=== PATIENT | female | born 1990 | race Caucasian/White ===

== ENCOUNTER 2016-10-04 09:02 | Inpatient (IN) | payer OTHER ==
[~2016-10-04] VITALS: Ht 162.6 cm; Wt 59.0 kg
--- NOTE | 2016-10-04 09:02 | NUR ---
Patient was BIBA and taken to bed 06 via gurney per EMS.
[2016-10-04 09:04] VITALS: BP 188/105
--- NOTE | 2016-10-04 09:05 | NUR ---
26/F [facility]BD[facility] RADIATING TO BACK AND NAUSEA AND VOMITING X 1WK. HX OF DM,HTN,DEPRESION,ANEMIA,ASTHMA,ESRF WITH HD [id number]/WK ( TUEWED,THUR& SAT) SKIN IS PINK/WARM/DRY; PICC LINE RIGHT UPPER CHEST, GRAFT FOR HEMO DIALYSIS DALE,+ BRUISE & THRILL. AAOX4 PTFEELS WEAK UNSTEADY GAIT WITH ASSISTANCE; LUNGS CLEAR BL; HR EVEN AND REGULAR; PT DENIES ANY FEVER, CP, SOB, OR COUGH AT THIS TIME; PATIENT STATES PAIN OF 8/10 AT THIS TIME; PATIENT POSITIONED FOR COMFORT; HOB ELEVATED; BEDRAILS UP X2; BED DOWN. ER MD MADE AWARE OF PT STATUS.
[2016-10-04] MEDS ORDERED: NACL 0.9% 1,000 ML IV ONE (09:15)
[2016-10-04] MEDS ORDERED: KETOROLAC 30 MG/ML VIAL IVP ONE (09:15)
[2016-10-04] MEDS ORDERED: ONDANSETRON 4 MG/2 ML VIAL IVP ONE (09:15)
[2016-10-04] MEDS ORDERED: D50SYR IV (09:21)
[2016-10-04] MEDS ORDERED: CARV25TA GT (09:21)
[2016-10-04] MEDS ORDERED: APIX2.5 GT (09:21)
[2016-10-04] MEDS ORDERED: CLON0.3T23 GT (09:21)
[2016-10-04] MEDS ORDERED: AMLO10TA GT (09:21)
[2016-10-04] MEDS ORDERED: BEN50 GT (09:21)
[2016-10-04] MEDS ORDERED: GLUC1PDS1 IM (09:21)
[2016-10-04] MEDS ORDERED: FENT1PAT3 TD (09:21)
--- NOTE | 2016-10-04 09:23 | NUR ---
Dr. Wynn evaluating patient at bedside.
[2016-10-04] MEDS ORDERED: HYDROmorphone PFS 2 MG/ML SYR IVP ONE (09:30)
--- NOTE | 2016-10-04 09:36 | NUR ---
PT STATED ABDOMINAL PAIN 12/17 ; ER MD DR MOSQUEDA ORDER DILAUDID 2 MG IV.
--- NOTE | 2016-10-04 09:36 | NUR ---
Oscar degroot in ED - 10/04/16 at 1139 by MED1 PT STATED ABDOMINAL PAIN 12/17 ; TIFFANY ARRIOLA DILAUDID 1MG IV.
[2016-10-04 09:40] LABS: BASOPHILS # (AUTO) 0.3 K/uL (0.00-0.22); EOSINOPHILS # (AUTO) 0.2 K/uL (0-0.4); EOSINOPHILS % (AUTO) 2.1 % (0.0-4.0); HEMATOCRIT 41.4 % (36-48); HEMOGLOBIN 13.3 g/dL (12.0-16.0); LYMPHOCYTES # (AUTO) 1.1 K/uL (2.5-16.5); LYMPHOCYTES % (AUTO) 11.1 % (20.5-51.1); MEAN CORPUSCULAR HEMOGLOBIN 29 pg (27-31); MEAN CORPUSCULAR HGB CONC 32 g/dL (33-37); MEAN CORPUSCULAR VOLUME 90 fL (80-94); MONOCYTES # (AUTO) 0.5 K/uL (0.8-1.0); MONOCYTES % (AUTO) 5.2 % (1.7-9.3); NEUTROPHILS # (AUTO) 7.4 K/uL (1.8-7.7); NEUTROPHILS % (AUTO) 78.6 % (42.2-75.2); PLATELET COUNT (AUTO) 350 K/uL (140-450); RED BLOOD CELL COUNT(AUTO) 4.59 MIL/uL (4.20-5.40); RED CELL DISTRIBUTION WIDTH 14.8 % (11.6-13.7); WHITE BLOOD COUNT (AUTO) 9.6 K/uL (4.8-10.8)
[2016-10-04] MEDS ORDERED: LORA-476 GT (09:49)
[2016-10-04] MEDS ORDERED: ALBU0.0946 IH (09:49)
[2016-10-04] MEDS ORDERED: HUMSLIDE SUBQ ×2 (09:49)
[2016-10-04] MEDS ORDERED: LEVO0.0511 GT (09:49)
[2016-10-04] MEDS ORDERED: HYDR4TAB11 GT (09:49)
[2016-10-04] MEDS ORDERED: PANT40EC GT (09:49)
[2016-10-04] MEDS ORDERED: HYDR100T79 GT (09:49)
[2016-10-04] MEDS ORDERED: LOPE1LIQ GT (09:49)
[2016-10-04] MEDS ORDERED: [UNRECOGNIZED DRUG - CODE] IJ (09:49)
[2016-10-04 09:59] LABS: ALBUMIN 3.8 g/dL (3.4-5.0); CALCIUM 8.2 mg/dL (8.5-10.1); TOTAL BILIRUBIN 0.4 mg/dL (0.0-1.0); TOTAL PROTEIN, SERUM 8.3 g/dL (6.4-8.2)
[2016-10-04 10:13] LABS: CARBON DIOXIDE 27.9 mmol/L (21-32); POTASSIUM 4.1 mmol/L (3.5-5.1)
--- NOTE | 2016-10-04 10:18 | NUR ---
Patient going to CT via scottie singh.
[2016-10-04 10:20] LABS: ANION GAP 22.2 (8-16); CREATININE 11.5 mg/dL (0.6-1.3)
--- NOTE | 2016-10-04 10:35 | NUR ---
Patient back from CT via [facility].
[2016-10-04] MEDS ORDERED: LORazepam 2 MG/ML VIAL IVP ONE (10:50)
--- NOTE | 2016-10-04 10:54 | NUR ---
PT STATED ' I FEELS ANXIOUS . I WANT ATIVAN. NOTIFIED ER MD DR MCKEON ; ATIVAN 1MG IV ORDER. Addendum: 10/04/16 at 1056 by [email or web address] ADMINISTER ATIVAN 1 MG IV.
--- NOTE | 2016-10-04 11:00 | NUR ---
Patient appears to be resting comfortably in bed. Respirations even and unlabored.BP151/84; MD AWARE. WILL CONTINUE TO MONITOR.
--- NOTE | 2016-10-04 11:13 | NUR ---
PT KATTYNATED ,SENT SPECIMEN TO LAB.
[2016-10-04 11:27] LABS: BILIRUBIN,URINE 1+ (NEGATIVE); BLOOD, URINE 3+ (NEGATIVE); COLOR,URINE YELLOW (YELLOW); LEUKOCYTE ESTERASE ,URINE NEGATIVE (NEGATIVE); NITRITE, URINE NEGATIVE (NEGATIVE); PROTEIN,URINE 3+ (NEGATIVE); UGLUCOSE 3+ (NEGATIVE); UROBILINOGEN,URINE 0.2 EU/dL (0.2 - 1)
[2016-10-04 11:38] LABS: APPEARANCE,URINE HAZY (CLEAR)
[2016-10-04 11:40] LABS: BACTERIA,URINE 1+ /HPF (None Seen); ICTOTEST NEGATIVE (NEGATIVE); RBC,URINE 3-10 (FEW) /HPF (0-5)
[2016-10-04 11:41] LABS: SQUAMOUS EPITHELIAL CELL,UR 4-10 (MOD) /LPF (0-3 (FEW))
[2016-10-04 12:40] VITALS: BP 181/98
[2016-10-04] MEDS ORDERED: cefTRIAXone 1,000 MG VIAL ONE (12:42)
--- NOTE | 2016-10-04 12:45 | NUR ---
REPORT TO ANKUR BERKOWITZ Addendum: [facility] . Admited to [facility]. Will go to [id number] list completed. Report to ANKUR BERKOWITZ.
[2016-10-04] MEDS ORDERED: hydrALAZINE 20 MG/ML VIAL IVP PRN (13:10)
[2016-10-04] MEDS ORDERED: ACETAMINOPHEN 325 MG TAB PO PRN (13:15)
[2016-10-04] MEDS ORDERED: ALBUTEROL HFA MDI 90 MCG/ACTUATION 8 GM INH PRN (13:20)
[2016-10-04] MEDS ORDERED: LOPERAMIDE 1 MG/5 ML ORASYR GT PRN (13:20)
[2016-10-04] MEDS ORDERED: cloNIDine 0.1 MG TAB GT PRN (13:20)
[2016-10-04] MEDS ORDERED: diphenhydrAMINE 50 MG CAP PO PRN (13:20)
[2016-10-04] MEDS ORDERED: DEXTROSE 50% 50 ML SYR IVP PRN (13:20)
--- NOTE | 2016-10-04 13:40 | NUR ---
ADMITTED A PATIENT F/26 Y/O FROM ER VIA [facility] WITH THE CHIEF COMPLAINT OF ABDOMINAL PAIN 12/17. PATIENT IS ALERT AWAKE ORIENTED X4, NOT IN ANY DISTRESS NOTED. ADMISSION ASSESSMENT INITIATED. ORDERS REVIEWED. ORIENTED TO THE ROOM, CALL LIGHT WITHIN REACH. SEEN BY DR. MURRAY AT BEDSIDE AND EXPLAINED THE PLAN OF CARE FOR TODAY. SEEN BY DR. SANTIZO ALSO AT BEDSIDE WITH ORDERS AND REVIEWED. WILL CONTINUE TO MONITOR.
[2016-10-04 13:46] LABS: FREE T4 (FREE THYROXINE) 1.64 ng/dL (0.76-1.46); THYROID STIMULATING HORMONE 3.91 uIU/mL (0.34-3.74)
[2016-10-04] MEDS ORDERED: DEXT 5% / NACL 0.9% 500 ML IV SCH (14:20)
--- NOTE | 2016-10-04 14:50 | NUR ---
REVIEWED DR. TREVOR PRYORI ORDER WITH FLORA/PHARMACIST AUTO-SUBSTITUTE TO [facility]
[2016-10-04] MEDS ORDERED: ALBUTEROL 0.083% 2.5 MG/3 ML NEBU INH PRN (15:00)
[2016-10-04] MEDS: MORPHINE SULFATE 4 MG/ML SYR IVP PRN ×2 (15:01→20:31)
[2016-10-04] MEDS: DEXT 5% / NACL 0.45% 1,000 ML IV SCH (15:10)
--- NOTE | 2016-10-04 15:39 | NUR ---
PER DIGITAL ACCOUNT EXECUTIVE VASHTI, SHE SPOKE WITH DR. TUCKER WITH ORDERS FOR DIALYSIS MADE AND CARRIED OUT BY TORRory. CONSENT FOR DIALYSIS OBTAINED, PT VERBALIZED UNDERSTANDING REGARDING PROCEDURE.
--- NOTE | 2016-10-04 15:55 | NUR ---
ENDORSED CARE TO PRIYA GALAVIZ FOR CONTINUITY OF CARE.
[2016-10-04 16:00] VITALS: BP 193/102
--- NOTE | 2016-10-04 17:32 | NUR ---
CALLED DR. MURRAY REGARDING HIGH BLOOD PRESSURE AND MADE AWARE. PRN CLONIDINE GIVEN ORDERED
[2016-10-04] MEDS: SENNA 8.6 MG TAB PO SCH (17:43)
[2016-10-04] MEDS: BLOOD GLUCOSE MONITORING 1 DEV DEV FS SCH ×2 (17:46→21:47)
--- NOTE | 2016-10-04 17:51 | NUR ---
PT REFUSED SCHEDULED REGLAN DUE TO ACCORDING TO HER MAKES HER ANXIOUS. AND REQUESTED ORDERED ZOFRAN PRN INSTEAD.
[2016-10-04] MEDS: METOCLOPRAMIDE 10 MG/2 ML INJ VIAL IVP SCH (17:52)
[2016-10-04] MEDS: ONDANSETRON 4 MG/2 ML VIAL IVP PRN (17:54)
--- NOTE | 2016-10-04 17:55 | NUR ---
VASHTI POWERSMONOMER RECOVERY SUPERVISOR STAFF WITH PT. PT STILL ON DIALYSIS. PT ON STABLE CONDITION
--- NOTE | 2016-10-04 19:30 | NUR ---
PT KEPT, CLEAN DRY AND COMFORTABLE, NEEDS ATTENDED. ENDORSED PT TO NEXT SHIFT ON STABLE CONDITION. DIALYSIS FINISHED PER DIALYSIS NURSE VASHTI. ENDORSED TO NEXT SHIFT REGARDING REASSESSMENT FOR CLONIDINE. PT ABLE TO MAKE HER NEEDS KNOWN.
--- NOTE | 2016-10-04 19:30 | NUR ---
RECEIVED REPORT FROM DAY RN AT BEDSIDE, PATIENT IS AAOX4 RESTING IN BED ON ROOM AIR, CURRENTLY RECEIVING DIALYSIS, PATIENT C/O ABDOMINAL PAIN, CENTRAL LINE TO RIGHT UPPER CHEST DOUBLE LUMEN PATENT AND INTACT, AV SHUNT TO RIGHT UPPER ARM, G TUBE TO ABDOMEN, DISCUSSED PLAN OF CARE WITH PATIENT, PT VERBALIZED UNDERSTANDING, CALL LIGHT WITHIN REACH. WILL CONTINUE TO MONITOR.
--- NOTE | 2016-10-04 19:30 | NUR ---
ENDORSED TO NEXT SHIFT TO HANG THE PRIMARY LINE ORDER DUE TO NOT ABLE TO HANG ON SHIFT BECAUSE PT WAS CURRENTLY HAVING DIALYSIS.
[2016-10-04] MEDS: CARVEDILOL 12.5 MG TAB GT SCH ×2 (20:29→21:00)
[2016-10-04] MEDS: AMITRIPTYLINE 25 MG TAB PO SCH ×2 (20:30→21:00)
[2016-10-04] MEDS: LACTULOSE 20 GM/30 ML UDC PO SCH ×2 (20:30→21:00)
[2016-10-04] MEDS ORDERED: PANTOPRAZOLE 40 MG INJ VIAL IVP SCH (21:00)
[2016-10-04] MEDS: INSULIN LISPRO SLIDING SCALE 100 UNITS/ML VIAL SUBQ PRN (21:53)
--- NOTE | 2016-10-04 22:00 | NUR ---
PT C/O 12/17 PAIN, ADMINISTERED MORPHINE, PT STATED NOT WORKING, OFFERED FENTANYL PATCH PER MD ORDER, PATIENT STATED IT DOES NOT WORK, ASKED FOR 1 TIME DOSE OF DILAUDED, PAGED DR HARRIS RECEIVED ORDERS FOR DILAUDED 1MG IVP X1. WILL F/U WITH ORDERS.
[2016-10-04] MEDS ORDERED: HYDROmorphone 1 MG/ML AMP IVP SCH (22:05)
[2016-10-05] VITALS: BP 130/78
[2016-10-05] MEDS: METOCLOPRAMIDE 10 MG/2 ML INJ VIAL IVP SCH ×4 (00:09→12:00)
--- NOTE | 2016-10-05 00:10 | NUR ---
PT SLEEPING, NO SIGN OF DISTRESS, PT REFUSED REGLAN D/T PT STATED IT MAKES HER ANXIOUS, CALL LIGHT WITHIN REACH WILL CONTINUE TO MONITOR
[2016-10-05] MEDS: MORPHINE SULFATE 4 MG/ML SYR IVP PRN ×5 (03:06→22:12)
--- NOTE | 2016-10-05 03:10 | NUR ---
PT C/O PAIN IN ABDOMEN, ADMINISTERED MEDICATION PER MD ORDER, WILL CONTINUE TO MONITOR
[2016-10-05] MEDS: ONDANSETRON 4 MG/2 ML VIAL IVP PRN ×4 (05:59→21:04)
--- NOTE | 2016-10-05 06:07 | NUR ---
PT REFUSED MORNING LAB DRAW, ADMINISTERED ZOFRAN PER MD ORDER, PT FEELING NAUSEOUS AND VOMITING.
[2016-10-05] MEDS: LEVOTHYROXINE 0.05 MG TAB GT SCH ×2 (06:30→09:38)
[2016-10-05] MEDS: INSULIN LISPRO SLIDING SCALE 100 UNITS/ML VIAL SUBQ PRN ×3 (06:33→21:18)
[2016-10-05] MEDS: BLOOD GLUCOSE MONITORING 1 DEV DEV FS SCH ×4 (06:35→21:17)
--- NOTE | 2016-10-05 07:30 | NUR ---
ENDORSED PATIENT TO DAY RN AT BEDSIDE, PATIENT IN STABLE CONDITION
--- NOTE | 2016-10-05 07:31 | NUR ---
RECEIVED REPORT FROM INFORMATION SYSTEMS MANAGER NURSE. PATIENT SEEN AWAKE, A/OX4. NO S/S OF DISTRESS, NO SOB NOTED. WITH A RUC CENTRAL DOUBLE LUMEN ONGOING AT 30 ML/HR, PATENT AND INTACT. GTUBE IS INTACT. FOR DIALYSIS TODAY. PLAN OF CARE DISCUSSED WITH PATIENT. WILL CONTINUE TO MONITOR. ALL NEEDS ATTENDED. CALL LIGHT WITHIN REACH. SAFETY CHECKS IN PLACE.
[2016-10-05 08:00] VITALS: BP 130/71
[2016-10-05] MEDS: amLODIPine 5 MG TAB GT SCH (09:00)
[2016-10-05] MEDS: LACTULOSE 20 GM/30 ML UDC PO SCH (09:00)
[2016-10-05] MEDS ORDERED: SERTRALINE 50 MG TAB PO SCH (09:00)
[2016-10-05] MEDS: SENNA 8.6 MG TAB PO SCH ×2 (09:00→12:10)
[2016-10-05] MEDS: CARVEDILOL 12.5 MG TAB GT SCH ×2 (09:00→20:51)
[2016-10-05] MEDS ORDERED: VENLAFAXINE 37.5 MG TAB PO SCH (09:00)
--- NOTE | 2016-10-05 09:02 | NUR ---
PATIENT HAS BEEN SCREENED AND CATEGORIZED MODERATE NUTRITION RISK. PATIENT WILL BE SEEN WITHIN 3-5 DAYS OF ADMISSION. 10/07/16-10/09/[address]
[2016-10-05] MEDS: PANTOPRAZOLE 40 MG INJ VIAL IVP SCH (09:12)
--- NOTE | 2016-10-05 09:13 | NUR ---
DID NOT GIVE SENOKOT AND CEPHULAC DUE TO DIARRHEA.
--- NOTE | 2016-10-05 09:40 | NUR ---
PT STARTED ON DIALYSIS WITH DIALYSIS NURSE. IN STABLE CONDITION. WILL CONTINUE TO MONITOR.
--- NOTE | 2016-10-05 10:00 | NUR ---
PT IS WITH DIALYSIS NURSE. DIALYSIS ONGOING. IN STABLE CONDITION.
--- NOTE | 2016-10-05 10:10 | NUR ---
CBC, CMP DRAWN FROM CENTRAL LINE. SPECIMEN SENT TO LAB.
[2016-10-05 10:29] LABS: HEMATOCRIT 35.1 % (36-48); HEMOGLOBIN 11.1 g/dL (12.0-16.0); MEAN CORPUSCULAR HEMOGLOBIN 29 pg (27-31); MEAN CORPUSCULAR HGB CONC 32 g/dL (33-37); MEAN CORPUSCULAR VOLUME 90 fL (80-94); PLATELET COUNT (AUTO) 290 K/uL (140-450); RED CELL DISTRIBUTION WIDTH 14.8 % (11.6-13.7); WHITE BLOOD COUNT (AUTO) 6.3 K/uL (4.8-10.8)
[2016-10-05 10:37] LABS: ANION GAP 13.9 (8-16); CALCIUM 7.6 mg/dL (8.5-10.1); CARBON DIOXIDE 28.4 mmol/L (21-32); POTASSIUM 3.3 mmol/L (3.5-5.1)
[2016-10-05 10:42] LABS: CREATININE 4.3 mg/dL (0.6-1.3); TOTAL BILIRUBIN 0.5 mg/dL (0.0-1.0); TOTAL PROTEIN, SERUM 6.5 g/dL (6.4-8.2)
[2016-10-05 11:24] LABS: EOSINOPHILS % (MANUAL) 5 % (0-4); LYMPHOCYTES % (MANUAL) 6 % (20-46); MONOCYTES % (MANUAL) 6 % (5-12); NEUTROPHILS % (MANUAL) 83 (43-65)
[2016-10-05] MEDS ORDERED: ALBUTEROL 0.083% 2.5 MG/3 ML NEBU INH PRN (11:25)
--- NOTE | 2016-10-05 13:00 | NUR ---
PATIENT FINISHED DIALYSIS. IN STABLE CONDITION. REQUESTED FOR PAIN MEDICATION. WILL MEDICATE. WILL CONTINUE TO MONITOR. CALL LIGHT WITHIN REACH. COMFORT AND SAFETY MEASURES IN PLACE.
[2016-10-05] MEDS ORDERED: KCL 20 MEQ/WATER INJ PREMIX 100 ML IV SCH (13:50)
[2016-10-05] MEDS ORDERED: DEXTROSE 50% 50 ML SYR IVP PRN (13:55)
--- NOTE | 2016-10-05 13:58 | NUR ---
CM NOTE INITIAL REVIEW FAXED TO [facility] / FAX# [phone]
[2016-10-05] MEDS ORDERED: POTASSIUM CHLORIDE 20 MEQ in LACTATED RINGERS 1,000 ML IV SCH (14:00)
[2016-10-05] MEDS: DEXT 5% / NACL 0.45% 1,000 ML IV SCH (15:10)
--- NOTE | 2016-10-05 15:30 | NUR ---
PT SEEN BY DR. Olesya DAVIS. NEW ORDERS GIVEN.
[2016-10-05 16:30] VITALS: BP 185/110
--- NOTE | 2016-10-05 17:00 | NUR ---
UPPER CENTRAL LINE DRESSING CHANGED. NO S/SX OF INFECTION NOTED AT SITE.
--- NOTE | 2016-10-05 17:30 | NUR ---
PT REFUSED SCD'S. EXPLAINED THE BENEFITS TO PT.
--- NOTE | 2016-10-05 18:00 | NUR ---
G TUBE FEEDING STARTED, PATENT.
--- NOTE | 2016-10-05 18:40 | NUR ---
PT SIGNED CONSENT FOR EGD. PT VERBALIZED UNDERSTANDING OF PROCEDURE EXPLAINED BY DR. Olesya DAVIS EARLIER. PAGED DR. DAVIS. AWAITING FOR CALL BACK.
--- NOTE | 2016-10-05 19:20 | NUR ---
ENDORSED TO MEDIA SERVICES COORDINATOR NURSE FOR CONTINUITY OF CARE.
--- NOTE | 2016-10-05 19:30 | NUR ---
RECEIVED REPORT FROM DAY RN AT BEDSIDE, PATIENT IS AAOX4 ON ROOM AIR, NO SOB OR SIGN OF DISTRESS AT THIS TIME, CENTRAL LINE TO RT UPPER CHEST PATENT AND INTACT, DRESSING INTACT, NOTED G TUBE TO FEEDING DIABETISOURCE AT 30ML, PT TOLERATING WELL. SKIN INTACT. AV SHUNT TO DALE BRUIT AND THRILL PRESENT. DISCUSSED PLAN OF CARE WITH PATIENT, PATIENT VERBALIZED UNDERSTANDING, CALL LIGHT WITHIN REACH WILL CONTINUE TO MONITOR, SAFETY MEASURES CHECKED.
[2016-10-05] MEDS: AMITRIPTYLINE 25 MG TAB GT SCH (20:52)
[2016-10-05] MEDS: LORazepam 2 MG/ML VIAL IVP PRN (21:16)
--- NOTE | 2016-10-05 21:22 | NUR ---
PM MEDS ADMINISTERED THROUGH GTUBE PER MD ORDER, PATIENT NAUSEOUS, ADMINISTERED ZOFRAN PER MD ORDER, PT ALSO STATED SHE WAS ANXIOUS, ASKED FOR ATIVAN, CALL LIGHT WITHIN REACH. WILL CONTINUE TO MONITOR
--- NOTE | 2016-10-05 22:45 | NUR ---
PT HAD BM IN BED, CLEANED PT AND PROVIDED NEW GOWN, PATIENT RESTING IN BED, NO SIGN OF DISTRESS, WILL CONTINUE TO MONITOR.
[2016-10-06] VITALS: BP 143/87
--- NOTE | 2016-10-06 00:15 | NUR ---
PT SLEEPING, NO SIGN OF DISTRESS, CALL LIGHT WITHIN REACH. WILL CONTINUE TO MONITOR
--- NOTE | 2016-10-06 02:43 | NUR ---
PT SLEEPING, NO SIGN OF DISTRESS, CALL LIGHT WITHIN REACH. WILL CONTINUE TO MONITOR
--- NOTE | 2016-10-06 04:13 | NUR ---
PATIENT SLEEPING, TUBE FEEDING HELD PER MD ORDER. CALL LIGHT WITHIN REACH. WILL CONTINUE TO MONITOR.
[2016-10-06] MEDS: MORPHINE SULFATE 4 MG/ML SYR IVP PRN ×4 (04:52→20:12)
[2016-10-06] MEDS: LORazepam 2 MG/ML VIAL IVP PRN ×3 (06:04→16:39)
[2016-10-06] MEDS: INSULIN LISPRO SLIDING SCALE 100 UNITS/ML VIAL SUBQ PRN ×4 (06:17→20:22)
[2016-10-06 06:19] LABS: BASOPHILS # (AUTO) 0.1 K/uL (0.00-0.22); BASOPHILS % (AUTO) 1.1 % (0.0-2.0); EOSINOPHILS # (AUTO) 0.3 K/uL (0-0.4); EOSINOPHILS % (AUTO) 5.3 % (0.0-4.0); HEMATOCRIT 35.8 % (36-48); HEMOGLOBIN 11.4 g/dL (12.0-16.0); LYMPHOCYTES # (AUTO) 1.4 K/uL (2.5-16.5); LYMPHOCYTES % (AUTO) 21.3 % (20.5-51.1); MEAN CORPUSCULAR HEMOGLOBIN 29 pg (27-31); MEAN CORPUSCULAR HGB CONC 32 g/dL (33-37); MEAN CORPUSCULAR VOLUME 91 fL (80-94); MONOCYTES # (AUTO) 0.6 K/uL (0.8-1.0); MONOCYTES % (AUTO) 9.1 % (1.7-9.3); NEUTROPHILS # (AUTO) 3.9 K/uL (1.8-7.7); NEUTROPHILS % (AUTO) 63.2 % (42.2-75.2); PLATELET COUNT (AUTO) 283 K/uL (140-450); RED BLOOD CELL COUNT(AUTO) 3.95 MIL/uL (4.20-5.40); RED CELL DISTRIBUTION WIDTH 14.6 % (11.6-13.7); WHITE BLOOD COUNT (AUTO) 6.3 K/uL (4.8-10.8)
[2016-10-06] MEDS: BLOOD GLUCOSE MONITORING 1 DEV DEV FS SCH ×4 (06:51→21:10)
[2016-10-06 07:11] LABS: ALBUMIN 3.1 g/dL (3.4-5.0); CALCIUM 7.7 mg/dL (8.5-10.1); TOTAL BILIRUBIN 0.6 mg/dL (0.0-1.0); TOTAL PROTEIN, SERUM 6.7 g/dL (6.4-8.2)
[2016-10-06 07:16] LABS: POTASSIUM 3.4 mmol/L (3.5-5.1)
--- NOTE | 2016-10-06 07:30 | NUR ---
ENDORSED PT TO DAY RN AT BEDSIDE, PT IN STABLE CONDITION
[2016-10-06 07:44] LABS: ANION GAP 22.5 (8-16); CARBON DIOXIDE 23.9 mmol/L (21-32); CREATININE 4.1 mg/dL (0.6-1.3)
[2016-10-06 08:00] VITALS: BP 155/75
--- NOTE | 2016-10-06 08:20 | NUR ---
DR. MURRAY MADE AWARE OF CRITICAL BS VALUE 515. MADE AWARE OF RECHECK 383. NO NEW ORDERS AT THIS TIME, WILL CONTINUE TO MONITOR.
[2016-10-06 08:34] LABS: HEPATITIS A ANTIBODY IGM Negative (Negative); HEPATITIS A ANTIBODY TOTAL Positive (Negative); HEPATITIS B CORE AB TOTAL Negative (Negative); HEPATITIS B CORE, IGM Negative (Negative); HEPATITIS B SURFACE AB Reactive (.); HEPATITIS B SURFACE ANTIGEN Negative (Negative); HEPATITIS C VIRUS ANTIBODY <0.1 s/co ratio (0.0-0.9)
[2016-10-06] MEDS: CARVEDILOL 12.5 MG TAB GT SCH ×2 (09:22→20:19)
[2016-10-06] MEDS: amLODIPine 5 MG TAB GT SCH (09:22)
[2016-10-06] MEDS: LEVOTHYROXINE 0.05 MG TAB GT SCH (09:22)
[2016-10-06] MEDS: PANTOPRAZOLE 40 MG INJ VIAL IVP SCH (09:22)
[2016-10-06] MEDS: DEXT 5% / NACL 0.45% 1,000 ML IV SCH (11:33)
[2016-10-06] MEDS ORDERED: fentaNYL 0.05 MG/ML VIAL ONE (11:59)
[2016-10-06] MEDS ORDERED: MIDAZOLAM 2 MG/2 ML VIAL ONE (12:00)
[2016-10-06] MEDS ORDERED: diphenhydrAMINE 50 MG/ML VIAL ONE (12:00)
[2016-10-06] MEDS ORDERED: DIAZEPAM PFS 10 MG/2 ML SYR ONE (12:00)
--- NOTE | 2016-10-06 13:21 | NUR ---
PATIENT SEEN BY DR. TUCKER. NO S/S OF ACUTE DISTRESS NOTED.
--- NOTE | 2016-10-06 14:18 | NUR ---
PATIENT TAKEN OFF FLOOR FOR EGD. NO S/S OF ACUTE DISTRESS NOTED.
[2016-10-06] MEDS ORDERED: SERT50TA PO (15:24)
[2016-10-06] MEDS ORDERED: PANT40EC GT (15:24)
[2016-10-06] MEDS ORDERED: TRAM50TA94 PO (15:26)
[2016-10-06] MEDS ORDERED: MIDAZOLAM 2 MG/2 ML VIAL IVP ONE (15:40)
[2016-10-06] MEDS ORDERED: fentaNYL 0.05 MG/ML VIAL IVP ONE (15:40)
[2016-10-06] MEDS ORDERED: diphenhydrAMINE 50 MG/ML VIAL IVP ONE (15:40)
[2016-10-06] MEDS ORDERED: DIAZEPAM PFS 10 MG/2 ML SYR IVP ONE (15:40)
[2016-10-06 16:00] VITALS: BP 148/87
--- NOTE | 2016-10-06 16:01 | NUR ---
CM NOTE AUTH#'S PROVIDED BY [facility] FOR [facility]: - TRANSPORT () #[id number] - [facility] ([facility]) #[id number]
--- NOTE | 2016-10-06 16:04 | NUR ---
SS NOTE: COMPA MELENDREZ FROM [facility] ([phone]), PT CAN GO TO ROOM 115C UNDER THE CARE OF DR. VALENTINE. [facility] BROWN.
--- NOTE | 2016-10-06 16:07 | NUR ---
CM NOTE PATIENT TO BE PICKED UP VIA WHEELCHAIR BY [facility] GOING TO [facility], RM 115C. ETA 2029. GIO POWERS MADE AWARE.
[2016-10-06] MEDS ORDERED: hydrALAZINE 25 MG TAB PO SCH (17:00)
--- NOTE | 2016-10-06 18:10 | NUR ---
SBAR REPORT GIVEN TO PRIYA OWENS AT [facility]. PATIENT MADE AWARE OF DISCHARGE TO FACILITY, IN AGREEMENT. NO S/S OF ACUTE DISTRESS.
--- NOTE | 2016-10-06 19:15 | NUR ---
ENDORSED PLAN OF CARE TO NIGHT RN VIVIENNE AT PT BEDSIDE. MADE AWARE OF PATIENT DISCHARGE AND JUSTOWRITER OPERATOR TIME FOR TRANSFER. PATIENT DISCHARGE INSTRUCTIONS GIVEN, VERBALIZED UNDERSTANDING. NO S/S OF ACUTE DISTRESS.
[2016-10-06 20:00] VITALS: BP 150/85
[2016-10-06] MEDS: AMITRIPTYLINE 25 MG TAB GT SCH (20:19)
--- NOTE | 2016-10-06 20:20 | NUR ---
BLOOD SUGAR CHECKED WITH 242 RESULT, COVERAGE GIVEN, SNACK PROVIDED, DUE PO MEDICATION ADMINISTERED, ALL NEEDS ATTENDED, AWARE OF DISCHARGE TONIGHT TO [facility], ALL NEEDS ATTENDED.
--- NOTE | 2016-10-06 21:05 | NUR ---
[facility] HERE, DISCHARGE PAPER SIGNED AND INSTRUCTIONS GIVEN BY AM NURSE GIO, TUNNELED PICC LINE TO RT CHEST HEPLOCK, G-TUBE CLAMPED, PT TRANSFER TO WHEELCHAIR INDEPENDENTLY, DISCHARGE TO [facility] IN STABLE CONDITION, CALLED [facility] AND SPOKE TO ROGER, UPDATED ON LAST PAIN MEDICATION GIVEN AND BLOOD SUGAR CHECKED.
[2016-10-07] MEDS ORDERED: fentaNYL 0.025 MG/HR PATCH TD SCH (09:00)
== END 2016-10-06 21:05 | DRG 951 ==
LOC: MED 09:02 → MMU 12:16
PROVIDERS: ADMIT Hospitalist; ATTEND Hospitalist
PROC: 5A1D60Z (ICD-10-PCS; 2016-10-04)
PROC: 0DW Gastrointestinal System, Revision (ICD-10-PCS; principal; 2016-10-06 12:00)
DX: E10.43 Type 1 diabetes mellitus with diabetic autonomic (poly)neuropathy (principal); E10.22 Type 1 diabetes mellitus with diabetic chronic kidney disease; N18.6 End stage renal disease; I12.0 Hypertensive chronic kidney disease with stage 5 chronic kidney disease or end stage renal disease; F11.20 Opioid dependence, uncomplicated; K22.10 Ulcer of esophagus without bleeding; K31.84 Gastroparesis; F32.9 Major depressive disorder, single episode, unspecified; J45.909 Unspecified asthma, uncomplicated; N39.0 Urinary tract infection, site not specified; E03.9 Hypothyroidism, unspecified; D63.1 Anemia in chronic kidney disease; K92.2 Gastrointestinal hemorrhage, unspecified; E87.6 Hypokalemia; K44.9 Diaphragmatic hernia without obstruction or gangrene; K21.0 Gastro-esophageal reflux disease with esophagitis; Z93.1 Gastrostomy status; Z93.4 Other artificial openings of gastrointestinal tract status; Z86.711 Personal history of pulmonary embolism; Z83.3 Family history of diabetes mellitus; Z79.899 Other long term (current) drug therapy; Z91.018 Allergy to other foods; Z91.013 Allergy to seafood; Z80.41 Family history of malignant neoplasm of ovary; Z80.0 Family history of malignant neoplasm of digestive organs; Z99.2 Dependence on renal dialysis
CPT/HCPCS: 36415; 74241; 80053; 81001; 81025; 82009; 82150; 82948; 83690; 84439; 84443; 84703; 85025; 86704; 86706; 86708; 86709; 86803; 87040; 87081; 87086; 87340; 96361; 96374; 96375; 99291; C9113; J0360; J0696; J1170; J1200; J1815; J1885; J2060; J2250; J2270; J2405; J2765; J3010; J3360; J3480; J7030; J7060; J7120; Q0092; Q0163; Q9967